=== PATIENT | male | born 1960 | race African-American/Black ===

== ENCOUNTER 2021-03-30 21:02 | Emergency (ER) | payer MEDICARE ==
[2021-03-30 21:46] LABS: #Basophils 0.1 thou/uL (0.0-0.2); #Eosinphils 0.1 thou/uL (0.0-0.7); #Lymphocytes 2.3 thou/uL (1.20-3.40); #Monocytes 0.7 thou/uL (0.11-0.59); #Neutrophils 4.9 thou/uL (1.40-6.50); %Basophils 0.7 % (0.0-1.0); %Eosinophils 1.4 % (0.0-10.0); %Lymphocytes 28.4 % (21.0-51.0); %Monocytes 9.1 % (0.0-10.0); %Neutrophils 60.5 % (42.0-75.0); Hemoglobin 13.4 g/dL (14.0-18.0); Mean Corpuscular HGB CONC 32.6 g/dL (32.0-36.0); Mean Corpuscular Hemoglobin 28.1 pg (27.0-31.0); Mean Platelet Volume 5.7 fL (7.4-10.4); Platelet Count 240 thou/uL (130-400); RBC Distribution Width 15.7 % (11.5-14.5); Red Blood Cell (RBC) Count 4.77 mill/uL (4.70-6.10)
[2021-03-30 22:02] LABS: ALT (SGPT) 12 U/L (8-55); AST (SGOT) 13 U/L (5-34); Albumin 3.9 g/dL (3.5-5.0); Alkaline Phosphatase 62 U/L (40-110); Anion Gap 19 mmol/L (10-20); BUN (Urea Nitrogen) 53 mg/dL (8.4-25.7); Bilirubin, Total 0.6 mg/dL (0.2-1.2); Calc. Creatinine Clearance 0 mL/min (70-130); Calcium 10.1 mg/dL (7.8-10.44); Carbon Dioxide 23 mmol/L (22-29); Chloride 98 mmol/L (98-107); Globulin 3.8 g/dL (2.4-3.5); Glucose 232 mg/dL (70-105); Potassium 3.6 mmol/L (3.5-5.1); Protein, Total 7.7 g/dL (6.0-8.3); Sodium 136 mmol/L (136-145)
[2021-03-30] MEDS ORDERED: Cipro 250 MG TAB ONE (22:14)
== END 2021-03-30 22:33 | disposition home or self-care (01) ==
LOC: NAV ERS 21:02
DX: K92.2 Gastrointestinal hemorrhage, unspecified (principal); I10 Essential (primary) hypertension; M19.90 Unspecified osteoarthritis, unspecified site; Z79.899 Other long term (current) drug therapy
CPT/HCPCS: 36415; 80053; 85025; 99284

== ENCOUNTER 2021-09-05 14:32 | Inpatient (IN) | payer MEDICARE ==
[2021-09-06] MEDS ORDERED: HYDROcodone/Acetaminophen 10/325 mg Tablet PO PRN (17:47)
[2021-09-06] MEDS ORDERED: Acetaminophen 650 MG Suppository PR PRN (17:54)
[2021-09-06] MEDS ORDERED: HumaLOG 300 UNITS/3 ML VIAL SC PRN ×2 (17:54)
[2021-09-06] MEDS ORDERED: Promethazine HCl 25 MG SUPP PR PRN (17:54)
[2021-09-06] MEDS ORDERED: Benzonatate 100 MG CAP PO PRN (17:54)
[2021-09-06] MEDS ORDERED: Sodium Chloride 0.65% Nasal 44 ML BOT EA NARE PRN (17:54)
[2021-09-06] MEDS ORDERED: Calcium Carbonate 500 MG ChewTAB PO PRN (17:54)
[2021-09-06] MEDS ORDERED: Artificial Tear Sol 15 ML BOT EA EYE PRN (17:54)
[2021-09-06] MEDS ORDERED: Cepastat Lozenges 1 LOZ PO PRN (17:54)
[2021-09-06] MEDS ORDERED: Dextrose 50% Abboject 50 ML SYRINGE SLOW IVP PRN (17:54)
[2021-09-06] MEDS ORDERED: Ondansetron ODT 4 MG TAB PO PRN (17:54)
[2021-09-06] MEDS ORDERED: Ondansetron PF 4 MG/2 ML Vial IVP PRN (17:54)
[2021-09-06] MEDS: Linezolid 600 MG TAB PO SCH (21:25)
[2021-09-06] MEDS: Carvedilol 25 MG TAB PO SCH (21:25)
[2021-09-07 06:30] LABS: Anion Gap 17 mmol/L (10-20); BUN (Urea Nitrogen) 11 mg/dL (8.4-25.7); Calc. Creatinine Clearance 177 mL/min (70-130); Carbon Dioxide 22 mmol/L (22-29); Chloride 106 mmol/L (98-107); Glucose 136 mg/dL (70-105); Potassium 4.9 mmol/L (3.5-5.1); Sodium 140 mmol/L (136-145)
[2021-09-07 06:34] LABS: #Basophils 0.1 thou/uL (0.0-0.2); #Eosinphils 0.5 thou/uL (0.0-0.7); #Lymphocytes 1.5 thou/uL (1.20-3.40); #Monocytes 0.7 thou/uL (0.11-0.59); #Neutrophils 7.2 thou/uL (1.40-6.50); %Basophils 0.5 % (0.0-1.0); %Eosinophils 4.8 % (0.0-10.0); %Lymphocytes 14.8 % (21.0-51.0); %Monocytes 6.8 % (0.0-10.0); %Neutrophils 73.1 % (42.0-75.0); Anisocytosis MODERATE=16-30 cells (100X) (0-5/hpf); Hemoglobin 8.8 g/dL (14.0-18.0); Hypochromia SLIGHT = 6-15 cells (100X) (0-5/hpf); MDiff Complete? YES; Mean Corpuscular HGB CONC 29.5 g/dL (32.0-36.0); Mean Corpuscular Volume 81.2 fL (78.0-98.0); Mean Platelet Volume 4.7 fL (7.4-10.4); Platelet Count 620 thou/uL (130-400); Polychromasia SLIGHT = 2-3 cells (100X) (0-2/hpf); Red Blood Cell (RBC) Count 3.67 mill/uL (4.70-6.10); White Blood Cell (WBC) Count 9.9 thou/uL (4.8-10.8)
[2021-09-07] MEDS ORDERED: Lansoprazole 3 MG/ML ORAL SUSPENSION PO SCH (09:00)
[2021-09-07] MEDS: Tamsulosin HCl 0.4 MG CAP PO SCH (09:34)
[2021-09-07] MEDS: Linezolid 600 MG TAB PO SCH ×2 (09:34→20:57)
[2021-09-07] MEDS: Ferrous Sulfate 325 MG TAB PO SCH ×3 (09:34→17:17)
[2021-09-07] MEDS: Carvedilol 25 MG TAB PO SCH ×2 (09:34→20:56)
[2021-09-07] MEDS: NIFEdipine XL 30 MG TAB PO SCH (09:34)
[2021-09-07] MEDS: Torsemide 20 MG TAB PO SCH (09:35)
[2021-09-07] MEDS: glipiZIDE 5 MG TAB PO SCH ×2 (09:36→17:23)
[2021-09-07] MEDS: Folic Acid 1 MG TAB PO SCH (09:36)
[2021-09-07] MEDS: HYDROcodone/Acetaminophen 10/325 mg Tablet PO PRN (17:28)
[2021-09-07] MEDS: Acetaminophen 325 MG TAB PO PRN (23:37)
[2021-09-08] MEDS: HYDROcodone/Acetaminophen 10/325 mg Tablet PO PRN ×2 (01:40→18:08)
[2021-09-08] MEDS ORDERED: Colchicine 0.6 MG TAB PO SCH ×2 (06:30→08:30)
[2021-09-08] MEDS: Tamsulosin HCl 0.4 MG CAP PO SCH (08:34)
[2021-09-08] MEDS: Linezolid 600 MG TAB PO SCH ×2 (08:34→21:51)
[2021-09-08] MEDS: Torsemide 20 MG TAB PO SCH (08:35)
[2021-09-08] MEDS: Ferrous Sulfate 325 MG TAB PO SCH ×3 (08:36→17:06)
[2021-09-08] MEDS: NIFEdipine XL 30 MG TAB PO SCH (08:36)
[2021-09-08] MEDS: Folic Acid 1 MG TAB PO SCH (08:37)
[2021-09-08] MEDS: glipiZIDE 5 MG TAB PO SCH ×2 (08:37→17:06)
[2021-09-08] MEDS: Carvedilol 25 MG TAB PO SCH ×2 (08:37→21:51)
[2021-09-08] MEDS: Acetaminophen 500 MG TAB PO PRN (10:09)
[2021-09-09] MEDS: HYDROcodone/Acetaminophen 10/325 mg Tablet PO PRN ×3 (04:15→21:22)
[2021-09-09] MEDS: Torsemide 20 MG TAB PO SCH (07:58)
[2021-09-09] MEDS: Linezolid 600 MG TAB PO SCH ×2 (07:59→20:55)
[2021-09-09] MEDS: Tamsulosin HCl 0.4 MG CAP PO SCH (07:59)
[2021-09-09] MEDS: NIFEdipine XL 30 MG TAB PO SCH (08:00)
[2021-09-09] MEDS: Carvedilol 25 MG TAB PO SCH ×2 (08:00→20:55)
[2021-09-09] MEDS: glipiZIDE 5 MG TAB PO SCH ×2 (08:00→16:38)
[2021-09-09] MEDS: Folic Acid 1 MG TAB PO SCH (08:00)
[2021-09-09] MEDS: Ferrous Sulfate 325 MG TAB PO SCH ×3 (08:00→16:38)
[2021-09-10 06:09] LABS: #Eosinphils 0.1 thou/uL (0.0-0.7); #Lymphocytes 1.4 thou/uL (1.20-3.40); #Monocytes 0.9 thou/uL (0.11-0.59); #Neutrophils 6.1 thou/uL (1.40-6.50); %Basophils 0.6 % (0.0-1.0); %Eosinophils 1.3 % (0.0-10.0); %Lymphocytes 16.2 % (21.0-51.0); %Monocytes 10.2 % (0.0-10.0); %Neutrophils 71.7 % (42.0-75.0); Anion Gap 14 mmol/L (10-20); Anisocytosis MODERATE=16-30 cells (100X) (0-5/hpf); BUN (Urea Nitrogen) 10 mg/dL (8.4-25.7); Calc. Creatinine Clearance 205 mL/min (70-130); Calcium 10.2 mg/dL (7.8-10.44); Carbon Dioxide 24 mmol/L (22-29); Chloride 105 mmol/L (98-107); Glucose 96 mg/dL (70-105); Hemoglobin 8.6 g/dL (14.0-18.0); Hypochromia MODERATE=16-30 cells (100X) (0-5/hpf); MDiff Complete? YES; Mean Corpuscular HGB CONC 29.6 g/dL (32.0-36.0); Mean Corpuscular Volume 81.1 fL (78.0-98.0); Mean Platelet Volume 4.9 fL (7.4-10.4); Platelet Count 510 thou/uL (130-400); Potassium 3.8 mmol/L (3.5-5.1); RBC Distribution Width 24.2 % (11.5-14.5); Sodium 139 mmol/L (136-145); White Blood Cell (WBC) Count 8.6 thou/uL (4.8-10.8)
[2021-09-10] MEDS: HYDROcodone/Acetaminophen 10/325 mg Tablet PO PRN (08:41)
[2021-09-10] MEDS: Folic Acid 1 MG TAB PO SCH (08:43)
[2021-09-10] MEDS: Tamsulosin HCl 0.4 MG CAP PO SCH (08:43)
[2021-09-10] MEDS: Ferrous Sulfate 325 MG TAB PO SCH ×3 (08:43→16:35)
[2021-09-10] MEDS: Carvedilol 25 MG TAB PO SCH ×2 (08:44→20:38)
[2021-09-10] MEDS: NIFEdipine XL 30 MG TAB PO SCH (08:44)
[2021-09-10] MEDS: Torsemide 20 MG TAB PO SCH (08:44)
[2021-09-10] MEDS: glipiZIDE 5 MG TAB PO SCH ×2 (08:45→16:35)
[2021-09-10] MEDS: Acetaminophen 500 MG TAB PO PRN ×2 (12:07→22:59)
[2021-09-10] MEDS: Senokot S 8.6-50 MG TAB PO PRN (14:59)
[2021-09-10] MEDS: Bisacodyl 5 MG TAB PO PRN (23:00)
[2021-09-11] MEDS: Tamsulosin HCl 0.4 MG CAP PO SCH (08:26)
[2021-09-11] MEDS: glipiZIDE 5 MG TAB PO SCH ×2 (08:26→16:14)
[2021-09-11] MEDS: Folic Acid 1 MG TAB PO SCH (08:26)
[2021-09-11] MEDS: NIFEdipine XL 30 MG TAB PO SCH (08:26)
[2021-09-11] MEDS: Ferrous Sulfate 325 MG TAB PO SCH ×3 (08:26→16:14)
[2021-09-11] MEDS: Carvedilol 25 MG TAB PO SCH ×2 (08:26→21:16)
[2021-09-11] MEDS: Torsemide 20 MG TAB PO SCH (08:27)
[2021-09-11] MEDS: HYDROcodone/Acetaminophen 10/325 mg Tablet PO PRN (12:00)
[2021-09-11] MEDS: Acetaminophen 325 MG TAB PO PRN (16:15)
[2021-09-11] MEDS: Melatonin 3 MG TAB PO PRN (21:16)
[2021-09-12 06:27] LABS: Anion Gap 14 mmol/L (10-20); BUN (Urea Nitrogen) 14 mg/dL (8.4-25.7); Calc. Creatinine Clearance 189 mL/min (70-130); Calcium 10.2 mg/dL (7.8-10.44); Carbon Dioxide 24 mmol/L (22-29); Chloride 106 mmol/L (98-107); Glucose 102 mg/dL (70-105); Potassium 3.9 mmol/L (3.5-5.1); Sodium 140 mmol/L (136-145)
[2021-09-12 06:32] LABS: #Basophils 0.1 thou/uL (0.0-0.2); #Eosinphils 0.1 thou/uL (0.0-0.7); #Lymphocytes 0.9 thou/uL (1.20-3.40); #Monocytes 0.6 thou/uL (0.11-0.59); #Neutrophils 4.9 thou/uL (1.40-6.50); %Basophils 1.1 % (0.0-1.0); %Eosinophils 1.7 % (0.0-10.0); %Lymphocytes 13.2 % (21.0-51.0); %Monocytes 8.7 % (0.0-10.0); %Neutrophils 75.3 % (42.0-75.0); Hemoglobin 8.7 g/dL (14.0-18.0); Mean Corpuscular Volume 82.2 fL (78.0-98.0); Mean Platelet Volume 5.1 fL (7.4-10.4); Platelet Count 464 thou/uL (130-400); RBC Distribution Width 24.9 % (11.5-14.5); Red Blood Cell (RBC) Count 3.78 mill/uL (4.70-6.10); White Blood Cell (WBC) Count 6.5 thou/uL (4.8-10.8)
[2021-09-12 06:47] LABS: Anisocytosis SLIGHT = 6-15 cells (100X) (0-5/hpf); Hypochromia SLIGHT = 6-15 cells (100X) (0-5/hpf); MDiff Complete? YES; Microcytosis SLIGHT = 6-15 cells (100X) (0-5/hpf); Platelet Morphology Comment Appears Adequate
[2021-09-12] MEDS: Ferrous Sulfate 325 MG TAB PO SCH ×3 (08:35→17:03)
[2021-09-12] MEDS: Folic Acid 1 MG TAB PO SCH (08:35)
[2021-09-12] MEDS: Tamsulosin HCl 0.4 MG CAP PO SCH (08:35)
[2021-09-12] MEDS: glipiZIDE 5 MG TAB PO SCH ×2 (08:35→17:04)
[2021-09-12] MEDS: NIFEdipine XL 30 MG TAB PO SCH (08:35)
[2021-09-12] MEDS: Carvedilol 25 MG TAB PO SCH ×2 (08:36→21:06)
[2021-09-12] MEDS: Torsemide 20 MG TAB PO SCH (08:36)
[2021-09-12] MEDS: HYDROcodone/Acetaminophen 10/325 mg Tablet PO PRN ×2 (10:24→21:06)
[2021-09-12] MEDS: Acetaminophen 325 MG TAB PO PRN (13:13)
[2021-09-12] MEDS: Melatonin 3 MG TAB PO PRN (21:06)
[2021-09-13] MEDS: Ferrous Sulfate 325 MG TAB PO SCH ×3 (08:54→16:53)
[2021-09-13] MEDS: NIFEdipine XL 30 MG TAB PO SCH (08:55)
[2021-09-13] MEDS: Torsemide 20 MG TAB PO SCH (08:55)
[2021-09-13] MEDS: glipiZIDE 5 MG TAB PO SCH ×2 (08:55→16:53)
[2021-09-13] MEDS: Carvedilol 25 MG TAB PO SCH ×2 (08:55→21:10)
[2021-09-13] MEDS: Folic Acid 1 MG TAB PO SCH (08:55)
[2021-09-13] MEDS: Tamsulosin HCl 0.4 MG CAP PO SCH (08:55)
[2021-09-13] MEDS: HYDROcodone/Acetaminophen 10/325 mg Tablet PO PRN ×2 (11:00→21:10)
[2021-09-13] MEDS: Acetaminophen 325 MG TAB PO PRN (14:33)
[2021-09-13] MEDS: Bisacodyl 5 MG TAB PO PRN (16:53)
[2021-09-13] MEDS: Melatonin 3 MG TAB PO PRN (21:10)
[2021-09-14] MEDS: Polyethylene Glycol 3350 17 GM Packet PO PRN (05:39)
[2021-09-14 07:09] LABS: Anion Gap 14 mmol/L (10-20); BUN (Urea Nitrogen) 12 mg/dL (8.4-25.7); Calc. Creatinine Clearance 179 mL/min (70-130); Calcium 10.4 mg/dL (7.8-10.44); Carbon Dioxide 25 mmol/L (22-29); Chloride 106 mmol/L (98-107); Glucose 112 mg/dL (70-105); Potassium 3.7 mmol/L (3.5-5.1); Sodium 141 mmol/L (136-145)
[2021-09-14 07:19] LABS: #Eosinphils 0.1 thou/uL (0.0-0.7); #Lymphocytes 1.1 thou/uL (1.20-3.40); #Monocytes 0.4 thou/uL (0.11-0.59); #Neutrophils 4.6 thou/uL (1.40-6.50); %Basophils 0.5 % (0.0-1.0); %Eosinophils 2.4 % (0.0-10.0); %Lymphocytes 17.1 % (21.0-51.0); %Monocytes 6.9 % (0.0-10.0); Hemoglobin 9.3 g/dL (14.0-18.0); Mean Corpuscular HGB CONC 28.7 g/dL (32.0-36.0); Mean Corpuscular Hemoglobin 23.5 pg (27.0-31.0); Mean Corpuscular Volume 81.9 fL (78.0-98.0); Platelet Count 420 thou/uL (130-400); RBC Distribution Width 24.3 % (11.5-14.5); Red Blood Cell (RBC) Count 3.93 mill/uL (4.70-6.10); White Blood Cell (WBC) Count 6.3 thou/uL (4.8-10.8)
[2021-09-14 08:02] LABS: Hypochromia SLIGHT = 6-15 cells (100X) (0-5/hpf); MDiff Complete? YES; Platelet Morphology Comment Appears Adequate
[2021-09-14] MEDS: Torsemide 20 MG TAB PO SCH (08:08)
[2021-09-14] MEDS: Folic Acid 1 MG TAB PO SCH (08:08)
[2021-09-14] MEDS: NIFEdipine XL 30 MG TAB PO SCH (08:09)
[2021-09-14] MEDS: Carvedilol 25 MG TAB PO SCH ×2 (08:10→21:04)
[2021-09-14] MEDS: glipiZIDE 5 MG TAB PO SCH ×2 (08:10→17:19)
[2021-09-14] MEDS: Ferrous Sulfate 325 MG TAB PO SCH ×3 (08:10→17:19)
[2021-09-14] MEDS: Tamsulosin HCl 0.4 MG CAP PO SCH (08:10)
[2021-09-14] MEDS: Senokot S 8.6-50 MG TAB PO PRN (12:05)
[2021-09-14] MEDS: Melatonin 3 MG TAB PO PRN (21:04)
[2021-09-14] MEDS: Acetaminophen 325 MG TAB PO PRN (21:04)
[2021-09-15] MEDS: Ferrous Sulfate 325 MG TAB PO SCH ×3 (07:35→17:07)
[2021-09-15] MEDS: glipiZIDE 5 MG TAB PO SCH ×2 (07:35→17:07)
[2021-09-15] MEDS: Carvedilol 25 MG TAB PO SCH ×2 (07:35→20:58)
[2021-09-15] MEDS: NIFEdipine XL 30 MG TAB PO SCH (07:36)
[2021-09-15] MEDS: Folic Acid 1 MG TAB PO SCH (07:36)
[2021-09-15] MEDS: Tamsulosin HCl 0.4 MG CAP PO SCH (07:37)
[2021-09-15] MEDS: Torsemide 20 MG TAB PO SCH (07:37)
[2021-09-15] MEDS: Senokot S 8.6-50 MG TAB PO PRN (15:00)
[2021-09-15] MEDS: Acetaminophen 325 MG TAB PO PRN (20:58)
[2021-09-15] MEDS: Melatonin 3 MG TAB PO PRN (20:58)
[2021-09-16] MEDS: Bisacodyl 5 MG TAB PO PRN (05:57)
[2021-09-16 06:00] LABS: Anion Gap 14 mmol/L (10-20); BUN (Urea Nitrogen) 15 mg/dL (8.4-25.7); Calc. Creatinine Clearance 155 mL/min (70-130); Calcium 10.4 mg/dL (7.8-10.44); Carbon Dioxide 25 mmol/L (22-29); Chloride 105 mmol/L (98-107); Glucose 125 mg/dL (70-105); Potassium 3.7 mmol/L (3.5-5.1); Sodium 140 mmol/L (136-145)
[2021-09-16 06:11] LABS: #Eosinphils 0.1 thou/uL (0.0-0.7); #Lymphocytes 1.3 thou/uL (1.20-3.40); #Monocytes 0.6 thou/uL (0.11-0.59); #Neutrophils 5.3 thou/uL (1.40-6.50); %Basophils 0.5 % (0.0-1.0); %Eosinophils 1.7 % (0.0-10.0); %Lymphocytes 18.4 % (21.0-51.0); %Monocytes 7.5 % (0.0-10.0); Hemoglobin 9.5 g/dL (14.0-18.0); Mean Corpuscular HGB CONC 28.6 g/dL (32.0-36.0); Mean Corpuscular Hemoglobin 23.4 pg (27.0-31.0); Mean Corpuscular Volume 81.7 fL (78.0-98.0); Mean Platelet Volume 5.1 fL (7.4-10.4); Platelet Count 369 thou/uL (130-400); RBC Distribution Width 24.6 % (11.5-14.5); Red Blood Cell (RBC) Count 4.05 mill/uL (4.70-6.10); White Blood Cell (WBC) Count 7.5 thou/uL (4.8-10.8)
[2021-09-16] MEDS: Tamsulosin HCl 0.4 MG CAP PO SCH (08:47)
[2021-09-16] MEDS: glipiZIDE 5 MG TAB PO SCH ×2 (08:47→16:54)
[2021-09-16] MEDS: Carvedilol 25 MG TAB PO SCH ×2 (08:48→21:04)
[2021-09-16] MEDS: Torsemide 20 MG TAB PO SCH (08:48)
[2021-09-16] MEDS: Folic Acid 1 MG TAB PO SCH (08:48)
[2021-09-16] MEDS: NIFEdipine XL 30 MG TAB PO SCH (08:48)
[2021-09-16] MEDS: Ferrous Sulfate 325 MG TAB PO SCH ×3 (08:48→16:54)
[2021-09-16] MEDS: HYDROcodone/Acetaminophen 10/325 mg Tablet PO PRN ×2 (09:50→21:03)
[2021-09-16] MEDS ORDERED: Transdermal Patch Removal TOP PRN (12:50)
[2021-09-16] MEDS: Lidocaine 5% Patch TD PRN (13:50)
[2021-09-16] MEDS: Melatonin 3 MG TAB PO PRN (21:03)
[2021-09-16] MEDS: Bisacodyl 10 MG SUPP PR PRN (21:04)
[2021-09-17] MEDS: Transdermal Patch Removal TOP SCH ×2 (00:24→21:11)
[2021-09-17] MEDS: NIFEdipine XL 30 MG TAB PO SCH (08:19)
[2021-09-17] MEDS: Folic Acid 1 MG TAB PO SCH (08:19)
[2021-09-17] MEDS: Senokot S 8.6-50 MG TAB PO PRN (08:19)
[2021-09-17] MEDS: Tamsulosin HCl 0.4 MG CAP PO SCH (08:19)
[2021-09-17] MEDS: Ferrous Sulfate 325 MG TAB PO SCH ×3 (08:19→17:05)
[2021-09-17] MEDS: glipiZIDE 5 MG TAB PO SCH ×2 (08:19→17:05)
[2021-09-17] MEDS: Torsemide 20 MG TAB PO SCH (08:19)
[2021-09-17] MEDS: Lidocaine 5% Patch TD PRN (08:20)
[2021-09-17] MEDS: Carvedilol 25 MG TAB PO SCH ×2 (08:20→21:11)
[2021-09-17] MEDS: HYDROcodone/Acetaminophen 10/325 mg Tablet PO PRN (09:06)
[2021-09-17] MEDS: Melatonin 3 MG TAB PO PRN (21:11)
[2021-09-17] MEDS: Acetaminophen 325 MG TAB PO PRN (21:11)
[2021-09-18] MEDS: Guaifenesin DM 100-10/5 ML UDCUP PO PRN ×2 (03:21→14:22)
[2021-09-18 06:15] LABS: Anion Gap 15 mmol/L (10-20); BUN (Urea Nitrogen) 37 mg/dL (8.4-25.7); Calc. Creatinine Clearance 82 mL/min (70-130); Calcium 10.2 mg/dL (7.8-10.44); Carbon Dioxide 24 mmol/L (22-29); Chloride 103 mmol/L (98-107); Estimated GFR 34; Glucose 140 mg/dL (70-105); Potassium 4.2 mmol/L (3.5-5.1); Sodium 138 mmol/L (136-145)
[2021-09-18 06:29] LABS: #Basophils 0.1 thou/uL (0.0-0.2); #Eosinphils 0.1 thou/uL (0.0-0.7); #Lymphocytes 1.3 thou/uL (1.20-3.40); #Neutrophils 8.8 thou/uL (1.40-6.50); %Basophils 0.5 % (0.0-1.0); %Eosinophils 0.4 % (0.0-10.0); %Lymphocytes 11.7 % (21.0-51.0); %Monocytes 8.6 % (0.0-10.0); %Neutrophils 78.8 % (42.0-75.0); Hemoglobin 9.4 g/dL (14.0-18.0); Mean Corpuscular HGB CONC 28.4 g/dL (32.0-36.0); Mean Corpuscular Hemoglobin 23.5 pg (27.0-31.0); Mean Corpuscular Volume 82.9 fL (78.0-98.0); Mean Platelet Volume 5.3 fL (7.4-10.4); Platelet Count 256 thou/uL (130-400); RBC Distribution Width 24.7 % (11.5-14.5); Red Blood Cell (RBC) Count 3.98 mill/uL (4.70-6.10); White Blood Cell (WBC) Count 11.2 thou/uL (4.8-10.8)
[2021-09-18] MEDS: glipiZIDE 5 MG TAB PO SCH ×2 (08:34→16:34)
[2021-09-18] MEDS: NIFEdipine XL 30 MG TAB PO SCH (08:35)
[2021-09-18] MEDS: Ferrous Sulfate 325 MG TAB PO SCH ×3 (08:35→16:30)
[2021-09-18] MEDS: Folic Acid 1 MG TAB PO SCH (08:35)
[2021-09-18] MEDS: Torsemide 20 MG TAB PO SCH (08:35)
[2021-09-18] MEDS: Carvedilol 25 MG TAB PO SCH ×2 (08:35→20:19)
[2021-09-18] MEDS: Tamsulosin HCl 0.4 MG CAP PO SCH (08:36)
[2021-09-18] MEDS: HYDROcodone/Acetaminophen 10/325 mg Tablet PO PRN (11:13)
[2021-09-18] MEDS: Lidocaine 5% Patch TD PRN (11:14)
[2021-09-18] MEDS: Melatonin 3 MG TAB PO PRN (20:18)
[2021-09-18] MEDS: Acetaminophen 325 MG TAB PO PRN (20:19)
[2021-09-19] MEDS: HYDROcodone/Acetaminophen 10/325 mg Tablet PO PRN ×2 (01:10→11:16)
[2021-09-19] MEDS: Transdermal Patch Removal TOP SCH (01:12)
[2021-09-19] MEDS: Acetaminophen 500 MG TAB PO PRN (08:21)
[2021-09-19] MEDS: Torsemide 20 MG TAB PO SCH (08:23)
[2021-09-19] MEDS: Carvedilol 25 MG TAB PO SCH ×2 (08:23→21:13)
[2021-09-19] MEDS: Tamsulosin HCl 0.4 MG CAP PO SCH (08:23)
[2021-09-19] MEDS: glipiZIDE 5 MG TAB PO SCH ×2 (08:23→16:43)
[2021-09-19] MEDS: Folic Acid 1 MG TAB PO SCH (08:23)
[2021-09-19] MEDS: NIFEdipine XL 30 MG TAB PO SCH (08:24)
[2021-09-19] MEDS: Ferrous Sulfate 325 MG TAB PO SCH ×3 (08:24→16:40)
[2021-09-19] MEDS: Lidocaine 5% Patch TD PRN (13:32)
[2021-09-19] MEDS: Senokot S 8.6-50 MG TAB PO PRN (16:49)
[2021-09-20] MEDS: Transdermal Patch Removal TOP SCH (01:45)
[2021-09-20 06:17] LABS: #Basophils 0.1 thou/uL (0.0-0.2); #Eosinphils 0.1 thou/uL (0.0-0.7); #Lymphocytes 1.1 thou/uL (1.20-3.40); #Monocytes 0.8 thou/uL (0.11-0.59); #Neutrophils 7.5 thou/uL (1.40-6.50); %Basophils 0.8 % (0.0-1.0); %Eosinophils 0.8 % (0.0-10.0); %Lymphocytes 11.5 % (21.0-51.0); %Neutrophils 78.8 % (42.0-75.0); Hemoglobin 9.2 g/dL (14.0-18.0); Mean Corpuscular HGB CONC 28.9 g/dL (32.0-36.0); Mean Corpuscular Hemoglobin 23.4 pg (27.0-31.0); Mean Corpuscular Volume 80.9 fL (78.0-98.0); Mean Platelet Volume 5.8 fL (7.4-10.4); Platelet Count 219 thou/uL (130-400); RBC Distribution Width 24.4 % (11.5-14.5); Red Blood Cell (RBC) Count 3.93 mill/uL (4.70-6.10); White Blood Cell (WBC) Count 9.5 thou/uL (4.8-10.8)
[2021-09-20 06:19] LABS: Anion Gap 17 mmol/L (10-20); BUN (Urea Nitrogen) 55 mg/dL (8.4-25.7); Calc. Creatinine Clearance 66 mL/min (70-130); Calcium 10.3 mg/dL (7.8-10.44); Carbon Dioxide 21 mmol/L (22-29); Chloride 101 mmol/L (98-107); Estimated GFR 27; Glucose 131 mg/dL (70-105); Potassium 4.2 mmol/L (3.5-5.1); Sodium 135 mmol/L (136-145)
[2021-09-20] MEDS: Bisacodyl 5 MG TAB PO PRN (08:04)
[2021-09-20] MEDS: NIFEdipine XL 30 MG TAB PO SCH (08:04)
[2021-09-20] MEDS: Tamsulosin HCl 0.4 MG CAP PO SCH (08:04)
[2021-09-20] MEDS: glipiZIDE 5 MG TAB PO SCH ×2 (08:05→16:23)
[2021-09-20] MEDS: Torsemide 20 MG TAB PO SCH (08:05)
[2021-09-20] MEDS: Folic Acid 1 MG TAB PO SCH (08:05)
[2021-09-20] MEDS: Ferrous Sulfate 325 MG TAB PO SCH ×3 (08:05→16:23)
[2021-09-20] MEDS: Carvedilol 25 MG TAB PO SCH ×2 (08:05→21:47)
[2021-09-20] MEDS: HYDROcodone/Acetaminophen 10/325 mg Tablet PO PRN (08:09)
[2021-09-20] MEDS: Guaifenesin DM 100-10/5 ML UDCUP PO PRN (08:09)
[2021-09-20] MEDS: Lidocaine 5% Patch TD PRN (12:34)
[2021-09-20] MEDS: Senokot S 8.6-50 MG TAB PO PRN (21:46)
[2021-09-20] MEDS: Melatonin 3 MG TAB PO PRN (21:46)
[2021-09-21] MEDS: Transdermal Patch Removal TOP SCH (01:18)
[2021-09-21] MEDS: Tamsulosin HCl 0.4 MG CAP PO SCH (09:00)
[2021-09-21] MEDS: Ferrous Sulfate 325 MG TAB PO SCH ×3 (09:00→17:29)
[2021-09-21] MEDS: Carvedilol 25 MG TAB PO SCH ×2 (09:01→20:58)
[2021-09-21] MEDS: Folic Acid 1 MG TAB PO SCH (09:01)
[2021-09-21] MEDS: NIFEdipine XL 30 MG TAB PO SCH ×2 (09:01→12:40)
[2021-09-21] MEDS: Torsemide 20 MG TAB PO SCH (09:01)
[2021-09-21] MEDS: glipiZIDE 5 MG TAB PO SCH ×2 (09:01→17:29)
[2021-09-21] MEDS: Polyethylene Glycol 3350 17 GM Packet PO PRN (12:40)
[2021-09-21 14:29] LABS: #Basophils 0.1 thou/uL (0.0-0.2); #Eosinphils 0.1 thou/uL (0.0-0.7); #Lymphocytes 1.1 thou/uL (1.20-3.40); #Monocytes 0.7 thou/uL (0.11-0.59); #Neutrophils 5.7 thou/uL (1.40-6.50); %Basophils 1.1 % (0.0-1.0); %Eosinophils 1.9 % (0.0-10.0); %Lymphocytes 13.9 % (21.0-51.0); %Monocytes 8.9 % (0.0-10.0); %Neutrophils 74.2 % (42.0-75.0); Hemoglobin 8.9 g/dL (14.0-18.0); Mean Corpuscular HGB CONC 28.6 g/dL (32.0-36.0); Mean Corpuscular Hemoglobin 23.3 pg (27.0-31.0); Mean Corpuscular Volume 81.6 fL (78.0-98.0); Platelet Count 221 thou/uL (130-400); RBC Distribution Width 23.9 % (11.5-14.5); Red Blood Cell (RBC) Count 3.82 mill/uL (4.70-6.10); White Blood Cell (WBC) Count 7.6 thou/uL (4.8-10.8)
[2021-09-21 14:38] LABS: Anion Gap 17 mmol/L (10-20); BUN (Urea Nitrogen) 60 mg/dL (8.4-25.7); Calc. Creatinine Clearance 76 mL/min (70-130); Calcium 10.3 mg/dL (7.8-10.44); Carbon Dioxide 21 mmol/L (22-29); Chloride 102 mmol/L (98-107); Estimated GFR 32; Glucose 129 mg/dL (70-105); Potassium 4.2 mmol/L (3.5-5.1); Sodium 136 mmol/L (136-145)
[2021-09-21] MEDS: Lidocaine 5% Patch TD PRN (14:58)
[2021-09-21] MEDS: HYDROcodone/Acetaminophen 10/325 mg Tablet PO PRN (15:04)
[2021-09-21] MEDS: Bisacodyl 10 MG SUPP PR PRN (18:15)
[2021-09-21] MEDS: Melatonin 3 MG TAB PO PRN (20:58)
[2021-09-22] MEDS: Transdermal Patch Removal TOP SCH (02:09)
[2021-09-22] MEDS ORDERED: Calcium Carbonate 500 MG ChewTAB ONE (04:00)
[2021-09-22 06:04] LABS: #Basophils 0.1 thou/uL (0.0-0.2); #Eosinphils 0.1 thou/uL (0.0-0.7); #Lymphocytes 1.1 thou/uL (1.20-3.40); #Monocytes 0.8 thou/uL (0.11-0.59); %Eosinophils 1.4 % (0.0-10.0); %Lymphocytes 13.4 % (21.0-51.0); %Monocytes 9.6 % (0.0-10.0); %Neutrophils 74.7 % (42.0-75.0); Mean Corpuscular HGB CONC 29.2 g/dL (32.0-36.0); Mean Corpuscular Hemoglobin 23.7 pg (27.0-31.0); Mean Corpuscular Volume 81.3 fL (78.0-98.0); Mean Platelet Volume 6.3 fL (7.4-10.4); Platelet Count 228 thou/uL (130-400); RBC Distribution Width 23.8 % (11.5-14.5); Red Blood Cell (RBC) Count 3.79 mill/uL (4.70-6.10); White Blood Cell (WBC) Count 8.1 thou/uL (4.8-10.8)
[2021-09-22 06:15] LABS: Anion Gap 16 mmol/L (10-20); BUN (Urea Nitrogen) 58 mg/dL (8.4-25.7); Calc. Creatinine Clearance 77 mL/min (70-130); Calcium 10.3 mg/dL (7.8-10.44); Carbon Dioxide 21 mmol/L (22-29); Chloride 102 mmol/L (98-107); Estimated GFR 32; Glucose 84 mg/dL (70-105); Potassium 4.3 mmol/L (3.5-5.1); Sodium 135 mmol/L (136-145)
[2021-09-22] MEDS: glipiZIDE 5 MG TAB PO SCH ×2 (08:52→17:11)
[2021-09-22] MEDS: Ferrous Sulfate 325 MG TAB PO SCH ×3 (08:52→17:11)
[2021-09-22] MEDS: Torsemide 20 MG TAB PO SCH (08:52)
[2021-09-22] MEDS: Carvedilol 25 MG TAB PO SCH ×2 (08:53→21:21)
[2021-09-22] MEDS: Tamsulosin HCl 0.4 MG CAP PO SCH (08:53)
[2021-09-22] MEDS: Folic Acid 1 MG TAB PO SCH (08:53)
[2021-09-22] MEDS: NIFEdipine XL 30 MG TAB PO SCH (08:54)
[2021-09-22] MEDS: HYDROcodone/Acetaminophen 10/325 mg Tablet PO PRN (12:29)
[2021-09-22] MEDS: Lidocaine 5% Patch TD PRN (13:00)
[2021-09-22 15:27] LABS: Creatinine, Urine 58.95 mg/dL (63-166)
[2021-09-22] MEDS: Melatonin 3 MG TAB PO PRN (21:21)
[2021-09-23] MEDS: Transdermal Patch Removal TOP SCH (02:12)
[2021-09-23] MEDS: HYDROcodone/Acetaminophen 10/325 mg Tablet PO PRN ×2 (08:54→20:04)
[2021-09-23] MEDS: Lidocaine 5% Patch TD PRN (08:55)
[2021-09-23] MEDS: Tamsulosin HCl 0.4 MG CAP PO SCH (08:56)
[2021-09-23] MEDS: glipiZIDE 5 MG TAB PO SCH ×2 (08:56→17:41)
[2021-09-23] MEDS: Ferrous Sulfate 325 MG TAB PO SCH ×3 (08:56→17:41)
[2021-09-23] MEDS: Carvedilol 25 MG TAB PO SCH ×2 (08:56→20:03)
[2021-09-23] MEDS: NIFEdipine XL 30 MG TAB PO SCH (08:56)
[2021-09-23] MEDS: Folic Acid 1 MG TAB PO SCH (08:57)
[2021-09-23] MEDS: Torsemide 20 MG TAB PO SCH (08:57)
[2021-09-23] MEDS: Melatonin 3 MG TAB PO PRN (20:05)
[2021-09-24] MEDS: Transdermal Patch Removal TOP SCH (00:04)
[2021-09-24 06:04] LABS: #Eosinphils 0.1 thou/uL (0.0-0.7); #Monocytes 0.9 thou/uL (0.11-0.59); %Basophils 0.6 % (0.0-1.0); %Eosinophils 1.4 % (0.0-10.0); %Lymphocytes 12.5 % (21.0-51.0); %Monocytes 10.6 % (0.0-10.0); %Neutrophils 74.9 % (42.0-75.0); Mean Corpuscular HGB CONC 28.6 g/dL (32.0-36.0); Mean Corpuscular Hemoglobin 23.6 pg (27.0-31.0); Mean Corpuscular Volume 82.5 fL (78.0-98.0); Mean Platelet Volume 5.1 fL (7.4-10.4); Platelet Count 226 thou/uL (130-400); RBC Distribution Width 24.7 % (11.5-14.5)
[2021-09-24 06:18] LABS: Anion Gap 15 mmol/L (10-20); BUN (Urea Nitrogen) 53 mg/dL (8.4-25.7); Calc. Creatinine Clearance 81 mL/min (70-130); Calcium 10.2 mg/dL (7.8-10.44); Carbon Dioxide 22 mmol/L (22-29); Chloride 102 mmol/L (98-107); Estimated GFR 34; Glucose 132 mg/dL (70-105); Potassium 4.4 mmol/L (3.5-5.1); Sodium 135 mmol/L (136-145)
[2021-09-24] MEDS: NIFEdipine XL 30 MG TAB PO SCH (08:34)
[2021-09-24] MEDS: Carvedilol 25 MG TAB PO SCH ×2 (08:34→20:57)
[2021-09-24] MEDS: Tamsulosin HCl 0.4 MG CAP PO SCH (08:35)
[2021-09-24] MEDS: glipiZIDE 5 MG TAB PO SCH ×2 (08:35→17:27)
[2021-09-24] MEDS: Ferrous Sulfate 325 MG TAB PO SCH ×3 (08:35→17:28)
[2021-09-24] MEDS: Folic Acid 1 MG TAB PO SCH (08:35)
[2021-09-24] MEDS: Torsemide 20 MG TAB PO SCH (08:35)
[2021-09-24] MEDS: HYDROcodone/Acetaminophen 10/325 mg Tablet PO PRN ×2 (10:12→20:56)
[2021-09-24] MEDS: Lidocaine 5% Patch TD PRN (10:16)
[2021-09-24] MEDS: Melatonin 3 MG TAB PO PRN (20:57)
[2021-09-25] MEDS: Transdermal Patch Removal TOP SCH (00:46)
[2021-09-25] MEDS: HYDROcodone/Acetaminophen 10/325 mg Tablet PO PRN ×2 (08:02→16:31)
[2021-09-25] MEDS: glipiZIDE 5 MG TAB PO SCH ×2 (08:04→16:33)
[2021-09-25] MEDS: Folic Acid 1 MG TAB PO SCH (08:04)
[2021-09-25] MEDS: Torsemide 20 MG TAB PO SCH (08:04)
[2021-09-25] MEDS: Ferrous Sulfate 325 MG TAB PO SCH ×3 (08:05→16:30)
[2021-09-25] MEDS: Tamsulosin HCl 0.4 MG CAP PO SCH (08:05)
[2021-09-25] MEDS: NIFEdipine XL 30 MG TAB PO SCH (08:06)
[2021-09-25] MEDS: Carvedilol 25 MG TAB PO SCH ×2 (08:06→21:31)
[2021-09-25] MEDS: Lidocaine 5% Patch TD PRN (10:16)
[2021-09-25] MEDS: Acetaminophen 325 MG TAB PO PRN (21:30)
[2021-09-25] MEDS: Melatonin 3 MG TAB PO PRN (21:31)
[2021-09-26] MEDS: Transdermal Patch Removal TOP SCH ×2 (01:01→21:45)
[2021-09-26] MEDS: Acetaminophen 325 MG TAB PO PRN ×3 (06:06→21:43)
[2021-09-26 06:24] LABS: Anion Gap 15 mmol/L (10-20); BUN (Urea Nitrogen) 52 mg/dL (8.4-25.7); Calc. Creatinine Clearance 81 mL/min (70-130); Calcium 10.2 mg/dL (7.8-10.44); Carbon Dioxide 22 mmol/L (22-29); Chloride 102 mmol/L (98-107); Estimated GFR 34; Glucose 94 mg/dL (70-105); Potassium 4.4 mmol/L (3.5-5.1); Sodium 135 mmol/L (136-145)
[2021-09-26 06:32] LABS: #Basophils 0.1 thou/uL (0.0-0.2); #Eosinphils 0.1 thou/uL (0.0-0.7); #Lymphocytes 1.3 thou/uL (1.20-3.40); #Monocytes 0.9 thou/uL (0.11-0.59); #Neutrophils 5.8 thou/uL (1.40-6.50); %Basophils 1.1 % (0.0-1.0); %Eosinophils 1.1 % (0.0-10.0); %Lymphocytes 16.1 % (21.0-51.0); %Monocytes 11.2 % (0.0-10.0); %Neutrophils 70.5 % (42.0-75.0); Hemoglobin 8.9 g/dL (14.0-18.0); Mean Corpuscular HGB CONC 29.1 g/dL (32.0-36.0); Mean Corpuscular Hemoglobin 24.1 pg (27.0-31.0); Mean Corpuscular Volume 82.9 fL (78.0-98.0); Mean Platelet Volume 5.7 fL (7.4-10.4); Platelet Count 259 thou/uL (130-400); Red Blood Cell (RBC) Count 3.67 mill/uL (4.70-6.10); White Blood Cell (WBC) Count 8.2 thou/uL (4.8-10.8)
[2021-09-26] MEDS: glipiZIDE 5 MG TAB PO SCH ×2 (09:04→17:32)
[2021-09-26] MEDS: NIFEdipine XL 30 MG TAB PO SCH (09:04)
[2021-09-26] MEDS: Torsemide 20 MG TAB PO SCH (09:06)
[2021-09-26] MEDS: Tamsulosin HCl 0.4 MG CAP PO SCH (09:06)
[2021-09-26] MEDS: Ferrous Sulfate 325 MG TAB PO SCH ×3 (09:06→17:25)
[2021-09-26] MEDS: HYDROcodone/Acetaminophen 10/325 mg Tablet PO PRN (09:07)
[2021-09-26] MEDS: Folic Acid 1 MG TAB PO SCH (09:07)
[2021-09-26] MEDS: Carvedilol 25 MG TAB PO SCH ×2 (09:07→21:43)
[2021-09-26] MEDS: Lidocaine 5% Patch TD PRN (10:24)
[2021-09-26] MEDS: Melatonin 3 MG TAB PO PRN (21:43)
[2021-09-27] MEDS: Ferrous Sulfate 325 MG TAB PO SCH ×3 (08:31→17:08)
[2021-09-27] MEDS: glipiZIDE 5 MG TAB PO SCH ×2 (08:31→17:08)
[2021-09-27] MEDS: Torsemide 20 MG TAB PO SCH (08:31)
[2021-09-27] MEDS: Folic Acid 1 MG TAB PO SCH (08:31)
[2021-09-27] MEDS: Carvedilol 25 MG TAB PO SCH ×2 (08:32→20:50)
[2021-09-27] MEDS: NIFEdipine XL 30 MG TAB PO SCH (08:33)
[2021-09-27] MEDS: Tamsulosin HCl 0.4 MG CAP PO SCH (08:34)
[2021-09-27] MEDS: HYDROcodone/Acetaminophen 10/325 mg Tablet PO PRN ×2 (08:34→17:06)
[2021-09-27] MEDS: Lidocaine 5% Patch TD PRN (08:37)
[2021-09-27] MEDS: Acetaminophen 325 MG TAB PO PRN (13:31)
[2021-09-27] MEDS: Transdermal Patch Removal TOP SCH (20:51)
[2021-09-27] MEDS: Melatonin 3 MG TAB PO PRN (20:51)
[2021-09-27] MEDS: Acetaminophen 500 MG TAB PO PRN (20:51)
[2021-09-28] MEDS: Acetaminophen 325 MG TAB PO PRN ×2 (07:41→14:11)
[2021-09-28] MEDS: Tamsulosin HCl 0.4 MG CAP PO SCH (07:41)
[2021-09-28] MEDS: NIFEdipine XL 30 MG TAB PO SCH (07:41)
[2021-09-28] MEDS: glipiZIDE 5 MG TAB PO SCH ×2 (07:42→17:54)
[2021-09-28] MEDS: Ferrous Sulfate 325 MG TAB PO SCH ×3 (07:42→17:53)
[2021-09-28] MEDS: Torsemide 20 MG TAB PO SCH (07:42)
[2021-09-28] MEDS: Carvedilol 25 MG TAB PO SCH ×2 (07:42→21:05)
[2021-09-28] MEDS: Folic Acid 1 MG TAB PO SCH (07:42)
[2021-09-28] MEDS: HYDROcodone/Acetaminophen 10/325 mg Tablet PO PRN ×2 (10:09→17:53)
[2021-09-28 10:21] LABS: Anion Gap 16 mmol/L (10-20); BUN (Urea Nitrogen) 47 mg/dL (8.4-25.7); Calc. Creatinine Clearance 90 mL/min (70-130); Carbon Dioxide 21 mmol/L (22-29); Chloride 103 mmol/L (98-107); Estimated GFR 38; Glucose 150 mg/dL (70-105); Potassium 4.5 mmol/L (3.5-5.1); Sodium 135 mmol/L (136-145)
[2021-09-28 10:51] LABS: #Basophils 0.1 thou/uL (0.0-0.2); #Eosinphils 0.1 thou/uL (0.0-0.7); #Monocytes 0.7 thou/uL (0.11-0.59); #Neutrophils 7.3 thou/uL (1.40-6.50); %Basophils 0.7 % (0.0-1.0); %Eosinophils 1.6 % (0.0-10.0); %Lymphocytes 10.5 % (21.0-51.0); %Neutrophils 79.3 % (42.0-75.0); Hemoglobin 9.1 g/dL (14.0-18.0); MDiff Complete? YES; Macrocytosis MARKED = >30 cells (100X) (0-5/hpf); Mean Corpuscular HGB CONC 28.1 g/dL (32.0-36.0); Mean Corpuscular Hemoglobin 23.3 pg (27.0-31.0); Mean Corpuscular Volume 83.1 fL (78.0-98.0); Mean Platelet Volume 5.2 fL (7.4-10.4); Platelet Count 277 thou/uL (130-400); Platelet Morphology Comment Appears Adequate; RBC Distribution Width 23.6 % (11.5-14.5); Red Blood Cell (RBC) Count 3.88 mill/uL (4.70-6.10); White Blood Cell (WBC) Count 9.2 thou/uL (4.8-10.8)
[2021-09-28] MEDS: Lidocaine 5% Patch TD PRN (11:59)
[2021-09-28] MEDS: Melatonin 3 MG TAB PO PRN (21:05)
[2021-09-29] MEDS: Transdermal Patch Removal TOP SCH (00:30)
[2021-09-29] MEDS: HYDROcodone/Acetaminophen 10/325 mg Tablet PO PRN ×2 (03:44→10:18)
[2021-09-29 05:30] VITALS: BMI 41.7
[2021-09-29] MEDS: NIFEdipine XL 30 MG TAB PO SCH (07:53)
[2021-09-29] MEDS: Ferrous Sulfate 325 MG TAB PO SCH ×3 (07:53→16:10)
[2021-09-29] MEDS: Torsemide 20 MG TAB PO SCH (07:53)
[2021-09-29] MEDS: Carvedilol 25 MG TAB PO SCH ×2 (07:53→20:30)
[2021-09-29] MEDS: Tamsulosin HCl 0.4 MG CAP PO SCH (07:53)
[2021-09-29] MEDS: Folic Acid 1 MG TAB PO SCH (07:53)
[2021-09-29] MEDS: glipiZIDE 5 MG TAB PO SCH ×2 (07:53→16:10)
[2021-09-29] MEDS: Acetaminophen 325 MG TAB PO PRN ×2 (12:02→17:33)
[2021-09-29] MEDS: Diclofenac 1% 100 GM GEL TP SCH ×2 (14:48→20:58)
[2021-09-29] MEDS: Melatonin 3 MG TAB PO PRN (20:30)
[2021-09-30] MEDS: Transdermal Patch Removal TOP SCH (00:49)
[2021-09-30] MEDS: HYDROcodone/Acetaminophen 10/325 mg Tablet PO PRN ×2 (05:51→14:07)
[2021-09-30 06:07] LABS: Anion Gap 16 mmol/L (10-20); BUN (Urea Nitrogen) 44 mg/dL (8.4-25.7); Calc. Creatinine Clearance 83 mL/min (70-130); Calcium 10.5 mg/dL (7.8-10.44); Carbon Dioxide 22 mmol/L (22-29); Chloride 105 mmol/L (98-107); Estimated GFR 36; Glucose 111 mg/dL (70-105); Potassium 4.7 mmol/L (3.5-5.1); Sodium 138 mmol/L (136-145)
[2021-09-30 06:30] LABS: #Eosinphils 0.1 thou/uL (0.0-0.7); #Lymphocytes 1.2 thou/uL (1.20-3.40); #Monocytes 0.8 thou/uL (0.11-0.59); #Neutrophils 8.5 thou/uL (1.40-6.50); %Basophils 0.5 % (0.0-1.0); %Eosinophils 1.3 % (0.0-10.0); %Lymphocytes 11.2 % (21.0-51.0); %Monocytes 7.3 % (0.0-10.0); %Neutrophils 79.8 % (42.0-75.0); Hemoglobin 9.3 g/dL (14.0-18.0); Mean Corpuscular HGB CONC 28.5 g/dL (32.0-36.0); Mean Corpuscular Hemoglobin 23.6 pg (27.0-31.0); Mean Corpuscular Volume 82.6 fL (78.0-98.0); Platelet Count 354 thou/uL (130-400); RBC Distribution Width 23.8 % (11.5-14.5); Red Blood Cell (RBC) Count 3.94 mill/uL (4.70-6.10); White Blood Cell (WBC) Count 10.6 thou/uL (4.8-10.8)
[2021-09-30] MEDS: Tamsulosin HCl 0.4 MG CAP PO SCH (08:24)
[2021-09-30] MEDS: NIFEdipine XL 30 MG TAB PO SCH (08:24)
[2021-09-30] MEDS: Carvedilol 25 MG TAB PO SCH ×2 (08:25→20:13)
[2021-09-30] MEDS: glipiZIDE 5 MG TAB PO SCH ×2 (08:25→17:31)
[2021-09-30] MEDS: Torsemide 20 MG TAB PO SCH (08:25)
[2021-09-30] MEDS: Ferrous Sulfate 325 MG TAB PO SCH ×3 (08:25→17:31)
[2021-09-30] MEDS: Folic Acid 1 MG TAB PO SCH (08:25)
[2021-09-30] MEDS: Diclofenac 1% 100 GM GEL TP SCH ×3 (09:26→20:16)
[2021-09-30] MEDS: Acetaminophen 325 MG TAB PO PRN ×2 (11:35→20:14)
[2021-09-30] MEDS: Lidocaine 5% Patch TD PRN (11:38)
[2021-09-30] MEDS: Melatonin 3 MG TAB PO PRN (20:13)
[2021-10-01] MEDS: Transdermal Patch Removal TOP SCH ×2 (00:58→21:38)
[2021-10-01] MEDS: Acetaminophen 325 MG TAB PO PRN ×2 (02:14→16:26)
[2021-10-01] MEDS: Tamsulosin HCl 0.4 MG CAP PO SCH (08:19)
[2021-10-01] MEDS: NIFEdipine XL 30 MG TAB PO SCH (08:19)
[2021-10-01] MEDS: Carvedilol 25 MG TAB PO SCH ×2 (08:19→20:02)
[2021-10-01] MEDS: glipiZIDE 5 MG TAB PO SCH ×2 (08:19→16:24)
[2021-10-01] MEDS: Ferrous Sulfate 325 MG TAB PO SCH ×3 (08:19→16:24)
[2021-10-01] MEDS: Torsemide 20 MG TAB PO SCH (08:20)
[2021-10-01] MEDS: Folic Acid 1 MG TAB PO SCH (08:20)
[2021-10-01] MEDS: Diclofenac 1% 100 GM GEL TP SCH ×3 (08:20→20:03)
[2021-10-01] MEDS: Lidocaine 5% Patch TD SCH (09:43)
[2021-10-01] MEDS: HYDROcodone/Acetaminophen 10/325 mg Tablet PO PRN ×2 (09:44→20:02)
[2021-10-01] MEDS: Melatonin 3 MG TAB PO PRN (21:21)
[2021-10-02 06:23] LABS: CRP (Inflammatory) 13.47 mg/dL (= or < 0.5); Uric Acid 10.5 mg/dL (3.5-7.2)
[2021-10-02] MEDS: Diclofenac 1% 100 GM GEL TP SCH ×3 (08:32→20:40)
[2021-10-02] MEDS: Lidocaine 5% Patch TD SCH (08:32)
[2021-10-02] MEDS: Folic Acid 1 MG TAB PO SCH (08:33)
[2021-10-02] MEDS: Ferrous Sulfate 325 MG TAB PO SCH ×3 (08:33→16:24)
[2021-10-02] MEDS: Torsemide 20 MG TAB PO SCH (08:34)
[2021-10-02] MEDS: Carvedilol 25 MG TAB PO SCH ×2 (08:34→20:39)
[2021-10-02] MEDS: glipiZIDE 5 MG TAB PO SCH ×2 (08:34→16:24)
[2021-10-02] MEDS: NIFEdipine XL 30 MG TAB PO SCH (08:34)
[2021-10-02] MEDS: Tamsulosin HCl 0.4 MG CAP PO SCH (08:35)
[2021-10-02] MEDS: HYDROcodone/Acetaminophen 10/325 mg Tablet PO PRN (10:20)
[2021-10-02] MEDS: Acetaminophen 325 MG TAB PO PRN (14:30)
[2021-10-02] MEDS: Melatonin 3 MG TAB PO PRN (20:39)
[2021-10-02] MEDS: Transdermal Patch Removal TOP SCH (20:41)
[2021-10-02] MEDS ORDERED: predniSONE 20 MG TAB PO SCH (21:00)
[2021-10-03] MEDS: Lidocaine 5% Patch TD SCH (08:50)
[2021-10-03] MEDS: Tamsulosin HCl 0.4 MG CAP PO SCH (08:51)
[2021-10-03] MEDS: Folic Acid 1 MG TAB PO SCH (08:51)
[2021-10-03] MEDS: Ferrous Sulfate 325 MG TAB PO SCH ×3 (08:51→18:31)
[2021-10-03] MEDS: glipiZIDE 5 MG TAB PO SCH ×2 (08:51→18:31)
[2021-10-03] MEDS: Carvedilol 25 MG TAB PO SCH ×2 (08:52→21:32)
[2021-10-03] MEDS: NIFEdipine XL 30 MG TAB PO SCH (08:52)
[2021-10-03] MEDS: Torsemide 20 MG TAB PO SCH (08:52)
[2021-10-03] MEDS: Diclofenac 1% 100 GM GEL TP SCH ×3 (08:53→21:34)
[2021-10-03] MEDS ORDERED: Loperamide HCl 2 MG CAP PO PRN (09:34)
[2021-10-03] MEDS: HYDROcodone/Acetaminophen 10/325 mg Tablet PO PRN (10:01)
[2021-10-03 18:19] VITALS: TEMP 97.8
[2021-10-03 20:34] VITALS: BP 134/71
[2021-10-03] MEDS: Transdermal Patch Removal TOP SCH (21:44)
== END 2021-10-03 18:10 | disposition short-term general hospital (02) | DRG 947 ==
LOC: NAV ACUTE 09-06 15:34
PROVIDERS: ADMIT Family Medicine; ATTEND Family Medicine
DX: R53.81 Other malaise (principal); J96.01 Acute respiratory failure with hypoxia; L03.818 Cellulitis of other sites; N17.9 Acute kidney failure, unspecified; I10 Essential (primary) hypertension; E78.5 Hyperlipidemia, unspecified; G89.29 Other chronic pain; E11.9 Type 2 diabetes mellitus without complications; Z96.649 Presence of unspecified artificial hip joint; Z96.659 Presence of unspecified artificial knee joint; D64.9 Anemia, unspecified; N40.0 Benign prostatic hyperplasia without lower urinary tract symptoms; K21.9 Gastro-esophageal reflux disease without esophagitis; E11.51 Type 2 diabetes mellitus with diabetic peripheral angiopathy without gangrene; I80.8 Phlebitis and thrombophlebitis of other sites; M19.032 Primary osteoarthritis, left wrist; M10.9 Gout, unspecified; Z20.822 Contact with and (suspected) exposure to COVID-19; Z98.890 Other specified postprocedural states
CPT/HCPCS: 36415; 36416; 71045; 80048; 82570; 83880; 84540; 84550; 85025; 85652; 86140; 97602; J1815; J7512; Q0162; U0003; U0005

== ENCOUNTER 2021-10-03 18:09 | Emergency (ER) | payer MEDICARE ==
[2021-10-03 19:28] LABS: #Basophils 0.1 thou/uL (0.0-0.2); #Lymphocytes 1.3 thou/uL (1.20-3.40); #Monocytes 0.8 thou/uL (0.11-0.59); %Basophils 0.5 % (0.0-1.0); %Eosinophils 0.3 % (0.0-10.0); %Lymphocytes 11.6 % (21.0-51.0); %Monocytes 7.3 % (0.0-10.0); %Neutrophils 80.3 % (42.0-75.0); Hemoglobin 9.3 g/dL (14.0-18.0); Mean Corpuscular Hemoglobin 23.6 pg (27.0-31.0); Mean Corpuscular Volume 81.4 fL (78.0-98.0); Mean Platelet Volume 4.8 fL (7.4-10.4); Platelet Count 417 thou/uL (130-400); RBC Distribution Width 23.7 % (11.5-14.5); Red Blood Cell (RBC) Count 3.95 mill/uL (4.70-6.10); White Blood Cell (WBC) Count 11.2 thou/uL (4.8-10.8)
[2021-10-03 19:32] LABS: Anion Gap 16 mmol/L (10-20); BUN (Urea Nitrogen) 41 mg/dL (8.4-25.7); Calc. Creatinine Clearance 0 mL/min (70-130); Calcium 10.4 mg/dL (7.8-10.44); Carbon Dioxide 20 mmol/L (22-29); Chloride 106 mmol/L (98-107); Estimated GFR 43; Glucose 152 mg/dL (70-105); Potassium 4.4 mmol/L (3.5-5.1); Sodium 138 mmol/L (136-145)
== END 2021-10-03 22:37 | disposition short-term general hospital (02) ==
LOC: NAV ERS 18:09
DX: I82.411 Acute embolism and thrombosis of right femoral vein (principal); I82.402 Acute embolism and thrombosis of unspecified deep veins of left lower extremity; E11.9 Type 2 diabetes mellitus without complications; N28.9 Disorder of kidney and ureter, unspecified; I10 Essential (primary) hypertension; M19.90 Unspecified osteoarthritis, unspecified site; D64.9 Anemia, unspecified; Z72.3 Lack of physical exercise; Z79.84 Long term (current) use of oral hypoglycemic drugs; Z79.899 Other long term (current) drug therapy
CPT/HCPCS: 80048; 85025; 99284